=== PATIENT | female | born 1970 | race Caucasian/White ===

== ENCOUNTER → 2018-12-09 09:21 | Outpatient (CLI) | payer OTHER, SELFPAY ==
--- NOTE | 2018-12-09 | DI.ECHO.S_ITS ---
[facility]---------+ [facility] +---------+ : : [address] : : : : [id number] : : : : Phone: [phone]+ Echocardiogram Report + + :Name: ROBBI VARGAS Study Date: 12/09/2018 Height: 64 in : :[facility] Exam Location: IS Weight: 172 lb: : Gender: Female BSA: 1.8 m2 : :: 1970 Age: 48 yrs BP: 1/68 mmHg : :Reason For Study: MURMUR : : Performed By: Daniel Cruz : :Referring: NIKUNJ IQBAL : + + Interpretation Summary 1) Normal left ventricular size, thickness, wall motion, and systolic function (EF 60-65%). 2) Normal right ventricular size and function. 3) Aortic valve is mildly sclerotic. 4) Mild aortic regurgitation present. There is an eccentric jet of aortic insufficiency directed against the anterior mitral leaflet. 5) No prior Echo available for comparison. Procedure: A two-dimensional transthoracic echocardiogram with color flow and Doppler was performed. The study quality was technically adequate. There is no prior echocardiogram noted for this patient. The patient was in normal sinus rhythm during the exam. Left Ventricle: The left ventricle is normal in size. There is normal left ventricular wall thickness. The ejection fraction is estimated to be 60-65%. Left ventricular systolic function is normal. There are no focal wall motion abnormalities. Right Ventricle: The right ventricle is normal in size and function. Atria: The left atrium is moderately dilated. Right atrial size is normal. The interatrial septum is intact with no evidence for an atrial septal defect. Mitral Valve: The mitral valve is normal in structure and function. There is trace mitral regurgitation. Aortic Valve: The aortic valve is trileaflet. The aortic valve opens well. There is mild aortic valve sclerosis. There is no aortic valve stenosis. There is mild aortic regurgitation. There is an eccentric jet of aortic insufficiency directed against the anterior mitral leaflet. Tricuspid Valve: The tricuspid valve is normal in structure and function. There is trace tricuspid regurgitation. The right ventricular systolic pressure is estimated to be at least 22 mmHg based on an estimated right atrial pressure of 3 mm Hg. Pulmonic Valve: The pulmonic valve is normal in structure and function. There is trace pulmonic regurgitation. Great Vessels: The aortic root is normal size. The dimensions of the ascending aorta are normal. The pulmonary artery is normal size. The IVC is of normal diameter and collapses greater than 50% with a sniff. This suggests a low right atrial pressure of 3 mm Hg. Pericardium/ Pleura There is no pericardial effusion. There is no pleural effusion. MMode/2D Measurements & Calculations LVIDd: 4.8 cm LVOT diam: 1.9 cm LVIDs: 2.8 cm Ao root diam: 3.0 cm FS: 42.2 % Aortic Jxn: 2.6 cm EPSS: 0.47 cm asc Aorta Diam: 3.2 cm IVSd: 0.65 cm Ao Arch Diam (Prox Trans): 2.1 cm LVPWd: 0.76 cm LV segura. diameter/BSA (cm/m^2): 2.6 LV sys. diameter/BSA (cm/m^2): 1.5 LA dimension: 2.9 cm RA long axis: 5.4 cm LA A2 area: 26.4 cm2 RA area: 16.1 cm2 LA A4 area: 21.0 cm2 RA vol: 41.1 ml LA length (vol): 5.9 cm RA : 22.4 ml/m2 LA vol: 79.6 ml IVC diam: 2.1 cm LA vol index: 43.4 ml/m2 Doppler Measurements & Calculations Ao V2 max: 148.3 cm/sec LVOT Max Srinivasa: 121.8 cm/sec Ao V2 mean: 104.3 cm/sec LV V1 max P.9 mmHg Ao max P.8 mmHg LV V1 VTI: 27.7 cm Ao mean P.7 mmHg VICTOR MANUEL(I,D): 2.4 cm2 Ao V2 VTI: 32.4 cm VICTOR MANUEL(V,D): 2.3 cm2 sev ratio: 0.86 VICTOR MANUEL indexed to BSA (cm^2/m^2): 1.3 AI P1/2t: 1075 msec AI dec slope: 98.5 cm/sec2 MV E max srinivasa: 92.7 cm/sec TR max srinivasa: 220.3 cm/sec MV A max srinivasa: 42.2 cm/sec TR max P.4 mmHg MV E/A: 2.2 PA V2 max: 64.1 cm/sec Med Peak E' Srinivasa: 7.5 cm/sec PA V2 mean: 48.2 cm/sec E/E' med: 12.3 PA mean P.0 mmHg Lat Peak E' Srinivasa: 13.3 cm/sec PA pr(Accel): 6.6 mmHg E/E' lat: 7.0 PA Accel Time: 0.13 sec E/e' average: 9.6 MV dec time: 0.20 sec SV(LVOT): 76.3 ml Reading Physician:05:17 PM
== END ==
PROVIDERS: Family Provider Naturopath; PCP Naturopath; Visit Provider Internal Medicine Cardiovascular Disease
DX: I35.1 Nonrheumatic aortic (valve) insufficiency (principal); Z86.79 Personal history of other diseases of the circulatory system
CPT/HCPCS: 93306

== ENCOUNTER → 2020-12-27 14:08 | Outpatient (CLI) | payer OTHER, SELFPAY | PROVIDERS: Family Provider Naturopath; PCP Family Medicine; Referring Provider Obstetrics & Gynecology; Visit Provider Obstetrics & Gynecology | DX: R10.2 Pelvic and perineal pain (principal); D21.9 Benign neoplasm of connective and other soft tissue, unspecified; Z53.8 Procedure and treatment not carried out for other reasons ==

== ENCOUNTER → 2021-03-09 07:59 | Outpatient (CLI) | payer OTHER, SELFPAY ==
[2021-03-09 19:11] LABS: Add Manual Diff / Slide Review NO; Basophils Absolute Auto 0 /uL (0-100); Basophils Percent Auto 0.9 % (0-2); Eosinophils Absolute Auto 900 /uL (0-450); Eosinophils Percent Auto 17.6 % (2-4); Hematocrit 38.2 % (36-46); Hemoglobin 12.8 g/dL (12.0-16.0); Lymphocytes Absolute Auto 1500 /uL (1100-4500); Lymphocytes Percent Auto 29.4 % (25-40); Mean Corpuscular HGB Conc 33.6 % (30-36); Mean Corpuscular Hemoglobin 30.6 PG (26-34); Mean Corpuscular Volume 91.1 fL (80-100); Monocytes Absolute Auto 500 /uL (0-900); Monocytes Percent Auto 10.1 % (3-14); Neutrophils Absolute Auto 2100 /uL (1500-7000); Platelet Count 283 X10^3/uL (150-400); Red Blood Cell Count 4.19 X10^6/uL (4.0-5.2); Red Cell Distribution Width 13.4 % (11.6-14.8); White Blood Cell Count 5.1 X10^3/uL (4.5-11.0)
[2021-03-09 19:24] LABS: Alanine Aminotransferase 16 IU/L (<35); Albumin 3.8 g/dL (3.5-5.0); Albumin Globulin Ratio 1.3 (1.0-2.8); Alkaline Phosphatase 40 U/L (38-126); Aspartate Aminotransferase 21 IU/L (14-36); BUN Creatinine Ratio 19.4 (6-22); Bilirubin Total 0.5 mg/dL (0.2-1.3); Blood Urea Nitrogen 13 mg/dL (7-17); Calcium 9.3 mg/dL (8.4-10.2); Carbon Dioxide 33 mmol/L (22-32); Chloride 104 mmol/L (98-107); Cholesterol 234 mg/dL (140-199); Estimated Glomerular Filt Rate > 60.0 mL/min (>60); Glucose 91 mg/dL (70-100); HDL Cholesterol 68 mg/dL (40-60); HEMOLYSIS < 15 (0-50); LDL Cholesterol Calculated 153 mg/dL (<100); Sodium 138 mmol/L (137-145); Total Protein 6.8 g/dL (6.3-8.2); Triglycerides 63 mg/dL (35-150)
[2021-03-09 19:52] LABS: TSH w/ Reflex to FT4 3.13 uIU/mL (0.47-4.68)
== END ==
PROVIDERS: Family Provider Naturopath; PCP Family Medicine; Visit Provider Family Medicine
DX: I49.9 Cardiac arrhythmia, unspecified (principal); Z00.00 Encounter for general adult medical examination without abnormal findings
CPT/HCPCS: 80053; 80061; 84443; 85025

== ENCOUNTER 2021-04-22 15:31 | Emergency (ER) | payer OTHER, SELFPAY ==
[2021-04-22 15:36] VITALS: BP 129/63; PULSE 70; RESP 18; TEMP 37; O2SAT 100
--- NOTE | 2021-04-22 16:12 | DI.RAD.S_ITS ---
PROCEDURE: XR LUMBAR SPINE 2-3V INDICATIONS: lumbosacral pain w/radiculopathy TECHNIQUE: 3 views of the lumbar spine were acquired. COMPARISON: None. FINDINGS: Bones: 5 [id number] vertebrae are present. There is minimal levoconvex scoliotic curvature. No focal AP alignment abnormality is seen. No vertebral body compression fractures. No suspicious bony lesions. Focal moderate disc space narrowing is seen at L5-S1. The disc heights otherwise appear well-preserved. Lower lumbar spine facet arthropathy is seen. Soft tissues: Overlying bowel gas pattern is normal. No suspicious soft tissue calcifications. IMPRESSION: Focal L5-S1 degenerative change seen by plain film. If it would be helpful for clinical management decision making, please consider a dedicated, scheduled lumbar spine MRI for further evaluation (assuming that there is no contraindication). Dictated by: Joseph Lynne M.D. on 04/22/2021 at 15:54 Approved by: Joseph Lynne M.D. on 04/22/2021 at 15:55
--- NOTE | 2021-04-22 16:12 | ED.BACK ---
HPI - Back Pain/Injury <ROCIO Simpson - Last Filed: 04/22/21 17:11> General Chief Complaint: Back Pain/Injury Stated Complaint: back pain Time Seen by Provider: 04/22/21 15:42 Source: patient History of Present Illness HPI Narrative: 51-year-old female with past medical history including PTSD, restless leg, chronic low back pain for 30 years with radiculopathy down the anterior aspect of her legs who presents to the emergency department with complaint of low back pain exacerbation which started over a week ago but has been worse over the last 5 days. 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 Patient states that she has been taking ibuprofen at home for her pain, this has been helpful but has not relieved all of her pain. Patient denies any weakness in her lower extremities, incontinence, she does endorse numbness and tingling which has gone down her left leg once this morning. She denies any new trauma, twisting, no known trigger for this low back pain flare. She states last weekend she was hiking, this could have been possible trigger but her pain got worse later in the week. Related Data Home Medications Medication Instructions Recorded Confirmed aspirin 81 mg tablet,delayed 81 mg PO DAILY 03/21/21 04/05/21 release (Adult Aspirin Regimen) Previous Rx's Medication Instructions Recorded ketorolac 10 mg tablet 10 mg PO Q8H PRN #14 tab 04/22/21 lidocaine 5 % topical patch 1 patch TOPICAL DAILY PRN #15 ea 04/22/21 methocarbamol 500 mg tablet 500 mg PO TID PRN #20 tab 04/22/21 pantoprazole 20 mg tablet,delayed 20 mg PO DAILY #20 tab 04/22/21 release Allergies Allergy/AdvReac Type Severity Reaction Status Date / Time Penicillins Allergy Unknown skin:rash Unverified 04/05/21 12:23 Review of Systems <ROCIO Simpson - Last Filed: 04/22/21 17:11> Review of Systems Narrative: General: denies fever, chills, malaise, sweats, fatigue Head/Neck: denies headache, neck pain, dizziness Eyes: denies visual changes, eye pain Cardio: denies chest pain, palpitations, edema Respiratory: denies dyspnea, cough, orthopnea GI: denies abdominal pain, nausea, vomiting, or diarrhea : denies dysuria, hematuria, urinary retention, frequency or incontinence MSK: denies joint pain, muscle weakness, endorses low back pain on bilateral sides, with sciatica symptoms that went down her left leg earlier today. Skin: denies rash, itching, skin lesions or other Neuro: denies numbness, tingling Patient History <ROCIO Simpson - Last Filed: 04/22/21 17:11> Medical History Abnormal Pap smear of cervix Asthma Cardiac arrhythmia, unspecified Chronic back pain Eczema Fibroids (~2018) Genital warts Gonorrhea Headache Neck pain Personal history of diseases of skin and subcutaneous tissue Plantar warts Preventative health care PTSD (post-traumatic stress disorder) Restless leg syndrome Shoulder pain Substance abuse Surgical History Anesthesia History of section (~05/28/05) Family History Grandfather Stomach cancer Alcohol abuse Grandmother History of heart disease Grandfather Kidney disease Grandmother Pancreas cancer Social History Smoking Status: Former smoker Smoking Status: Former smoker Exam <ROCIO Simpson - Last Filed: 04/22/21 17:11> Narrative Exam Narrative: Independently reviewed vitals signs and nursing notes. General: Cooperative, comfortable, in no acute distress, well developed and well groomed Head/Neck: Normal visual inspection and supple, atraumatic, no JVD or lymphadenopathy. Normal facial exam Eyes: Pupils equal round and reactive, EOMI, conjunctiva normal, no scleral icterus or injections Nose: External nose normal, nares patent, no rhinorrhea, without purulent drainage Mouth/Throat: uvula midline, moist mucus membranes Cardio: Regular rate and rhythm, no peripheral edema, warm extremities Respiratory: Normal respiratory effort, able to speak in complete sentences without audible wheezing, stridor, or rales. No retractions. GI: Abdomen soft, nontender to palpation x4 quadrants, nondistended, no masses or exquisite tenderness with exam, no flank tenderness MSK: Moves all extremities, neurovascularly intact, no focal neuro deficit, strength equal bilateral lower extremities, ambulates with steady gait, warm extremities, no tenderness to palpation of her lumbar spine Skin: Normal capillary refill, no rash Neuro: Normal speech and cognition, normal gait, A&O x3, tone normal, moves all extremities Psych: Mental status is grossly normal, speech is clear, congruent mood, normal affect Initial Vital Signs Initial Vital Signs: Vital Signs Temperature 98.6 F 04/22/21 15:36 Pulse Rate 70 04/22/21 15:36 Respiratory Rate 18 04/22/21 15:36 Blood Pressure 129/63 04/22/21 15:36 Pulse Oximetry 100 04/22/21 15:36 <Alejandra Porter DO - Last Filed: 04/22/21 18:42> Initial Vital Signs Initial Vital Signs: Vital Signs Temperature 98.6 F 04/22/21 15:36 Pulse Rate 70 04/22/21 15:36 Respiratory Rate 18 04/22/21 15:36 Blood Pressure 129/63 04/22/21 15:36 Pulse Oximetry 100 04/22/21 15:36 Course <ROCIO Simpson - Last Filed: 04/22/21 17:11> Orders Ordered: ED Orders 04/22/21 16:12 XR lumbar spine 2-3V Stat Discontinued Medications Acetaminophen (Acetaminophen 325 Mg Tablet) 975 mg PO NOW ONE Stop: 04/22/21 16:12 Last Admin: 04/22/21 16:54 Dose: 975 mg Documented by: DUSTIN Ketorolac Tromethamine (Ketorolac 10 Mg Tablet) 10 mg PO NOW ONE Stop: 04/22/21 16:12 Last Admin: 04/22/21 16:54 Dose: 10 mg Documented by: DUSTIN Lidocaine (Lidocaine Patch 1 Each Adh..Patch) 1 each TOP NOW ONE Stop: 04/22/21 16:12 Last Admin: 04/22/21 16:53 Dose: 1 each Documented by: DUSTIN Methocarbamol (Methocarbamol 500 Mg Tablet) 500 mg PO NOW ONE Stop: 04/22/21 16:12 Last Admin: 04/22/21 16:57 Dose: Not Given Documented by: BTONER Vital Signs Vital signs: Vital Signs - 8 hr 04/22/21 15:36 04/22/21 17:11 Temperature 98.6 F Pulse Rate 70 55 L Respiratory Rate 18 16 Blood Pressure 129/63 120/59 L Pulse Oximetry 100 100 <Alejandra Porter DO - Last Filed: 04/22/21 18:42> Orders Ordered: ED Orders 04/22/21 16:12 XR lumbar spine 2-3V Stat Discontinued Medications Acetaminophen (Acetaminophen 325 Mg Tablet) 975 mg PO NOW ONE Stop: 04/22/21 16:12 Last Admin: 04/22/21 16:54 Dose: 975 mg Documented by: BTONER Ketorolac Tromethamine (Ketorolac 10 Mg Tablet) 10 mg PO NOW ONE Stop: 04/22/21 16:12 Last Admin: 04/22/21 16:54 Dose: 10 mg Documented by: BTONER Lidocaine (Lidocaine Patch 1 Each Adh..Patch) 1 each TOP NOW ONE Stop: 04/22/21 16:12 Last Admin: 04/22/21 16:53 Dose: 1 each Documented by: BTONER Methocarbamol (Methocarbamol 500 Mg Tablet) 500 mg PO NOW ONE Stop: 04/22/21 16:12 Last Admin: 04/22/21 16:57 Dose: Not Given Documented by: BTONER Vital Signs Vital signs: Vital Signs - 8 hr 04/22/21 15:36 04/22/21 17:11 Temperature 98.6 F Pulse Rate 70 55 L Respiratory Rate 18 16 Blood Pressure 129/63 120/59 L Pulse Oximetry 100 100 MDM - Back Pain/Injury <PAIGE SimpsonP - Last Filed: 04/22/21 17:11> Imaging Data lumbar xr: Radiologist's Impression: PROCEDURE:? XR LUMBAR SPINE 2-3V ? INDICATIONS:? lumbosacral pain w/radiculopathy ? TECHNIQUE:? 3 views of the lumbar spine were acquired.? ? COMPARISON:? None. ? FINDINGS:? ? Bones:? 5 [id number] vertebrae are present.? There is minimal levoconvex scoliotic curvature. No focal AP alignment abnormality is seen.? ? No vertebral body compression fractures.? No suspicious bony lesions.? ? Focal moderate disc space narrowing is seen at L5-S1. The disc heights otherwise appear well-preserved.? Lower lumbar spine facet arthropathy is seen.? ? Soft tissues:? Overlying bowel gas pattern is normal.? No suspicious soft tissue calcifications.? ? ? IMPRESSION:? Focal L5-S1 degenerative change seen by plain film. ? If it would be helpful for clinical management decision making, please consider a dedicated, scheduled lumbar spine MRI for further evaluation (assuming that there is no contraindication).? ? ? Dictated by: Joseph Lynne M.D. on 04/22/2021 at 15:54 ? ? Approved by: Joseph Lynne M.D. on 04/22/2021 at 15:55 ? MDM Narrative Medical decision making narrative: 51-year-old female with past medical history including chronic low back pain, no recent imaging, PTSD, restless leg, who presents to the emergency department with flare of her low back pain over the last 5 days with a likely trigger of hiking a few days prior to this. Patient denies any trauma, she did not lift anything heavy and have pain started afterwards, she has been taking ibuprofen at home but missed 3 days of work because the pain was significant. Patient does not have any weakness, she does have some radiculopathy down her left leg, she states this is a worse flare than usual. X-ray lumbar spine shows degenerative changes at L5-S1 without associated vertebral compression fracture, no acute fracture, without suspicious soft tissue calcifications and disc heights appear well preserved. Patient was given lidocaine patch, Toradol p.o., pantoprazole and Tylenol in the emergency department with mild relief of her symptoms. She was driving so she did not take methocarbamol. She was given a prescription for Robaxin, lidocaine patches, Toradol pills, and pantoprazole to take while she is taking Toradol. Patient understands to use heat, rest, stay hydrated, eat food with taking these medications. She will follow-up with Dr. Manrique for physical therapy and advanced imaging. Multiple etiologies of back pain considered including; Epidural abscess, cauda equina, mass occupying lesion, lumbar fracture, intra-abdominal pathology chronic neuropathic pain and other considered. Patient is out with any weakness in her lower extremities, she does have some radiculopathy but no toe drinking, or weakness, or difficulty ambulating. Patient is appropriate and amenable to discharge home. Vital signs are stable on repeat examination is unremarkable. Patient has been informed of results. Patient has been given strict return to ER precautions for any new or worsening symptoms. Patient understands to follow up closely with outpatient providers as instructed. Patient understands plan and agrees to discharge home. All questions and concerns answered at this time. Discharge Plan Departure Patient Disposition: Home Clinical Impression: Degenerative disc disease at L5-S1 level Chronic back pain Qualifiers: Back pain location: low back pain Back pain laterality: midline Sciatica presence: with sciatica Sciatica laterality: sciatica of left side Qualified Code(s): M54.42 - Lumbago with sciatica, left side Instructions: DI for Back Pain With Sciatica, DI for Back Spasm Activity Restrictions/Additional Instructions: *You have been diagnosed with chronic low back pain with moderate disc space narrowing in L5-S1 which we call degenerative changes, no compression fractures, and this is most likely a disc issue between L5 and S1. Please follow-up with your primary care provider for advanced imaging and physical therapy. Please use muscle relaxers as necessary for the next few days until you start feeling better. He can take them every 8 hours, please do not drive on that medication. You can use a lidocaine patch over the area that is most painful all day, this may help numb some of the pain. Please take pantoprazole while your taking Toradol for pain, because you have aspirin listed as a daily medication, this will help prevent and ulcer or bleeding in your stomach on those medications. Please use heat packs, try to rest for the next couple of days to allow the flare to come down. If you are still having a flare Friday, please call Dr. Manrique and discussed possible steroids for low back pain exacerbation. Please follow-up with him about the physical therapy though, that can be extremely helpful since you have had this problem for a long time. *What to do: *Please continue to take your regular medications as directed. [ x] New medication prescriptions sent to your pharmacy: [[facility] ] [ ] New medication written as a paper prescription [ ] No new medications given *Please follow up with your primary care provider in 2-3 days, call for an appointment. Let them know you were seen in the Emergency Department and that we ask that you be seen in follow up. We will electronically transmit a record of today's note if your PCP is in our system *If you do not have a primary care provider please contact the [facility] Resource line at [phone]. They will ask some questions about your medical history and help get you set up with a doctor in the community. *Return to Emergency Department if you should have any new, worsening or concerning symptoms, such as [fever greater than 101F, chills, worsening pain, persistent vomiting or other bothersome symptoms] Prescriptions: New methocarbamol 500 mg tablet 500 mg PO TID PRN (Reason: muscle spasm) Qty: 20 0RF ketorolac 10 mg tablet 10 mg PO Q8H PRN (Reason: pain) Qty: 14 0RF pantoprazole 20 mg tablet,delayed release (DR/EC) 20 mg PO DAILY Qty: 20 0RF lidocaine 5 % adhesive patch,medicated 1 patch topical DAILY PRN (Reason: low back pain) Qty: 15 0RF Rx Instructions: leave on most painful area for up to 12 hrs No Action aspirin [Adult Aspirin Regimen] 81 mg tablet,delayed release (DR/EC) 81 mg PO DAILY 0RF Referrals: Adeel Manrique DO [Primary Care Provider] - Stand Alone Forms: Work Release Note <Alejandra Porter DO - Last Filed: 04/22/21 18:42> Cosign ED Attending Hazelature Attestation: I was immediately available in the department for consultation. Documentation has been reviewed.
[2021-04-22] MEDS: LIDOCAINE PATCH 1 EACH ADH..PATCH TOP (16:53)
[2021-04-22] MEDS: ACETAMINOPHEN 325 MG TABLET 975 MG PO (16:54)
[2021-04-22] MEDS: KETOROLAC 10 MG TABLET PO (16:54)
[2021-04-22 17:11] VITALS: BP 120/59; PULSE 55; RESP 16; O2SAT 100
--- NOTE | 2021-04-22 17:15 | PC.NURSE ---
low back, near sacral area.
== END 2021-04-22 17:18 | disposition home or self-care (01) ==
PROVIDERS: Emergency Provider Nurse Practitioner Critical Care Medicine; Family Provider Naturopath; PCP Family Medicine
DX: M54.42 Lumbago with sciatica, left side (principal); M51.37 Other intervertebral disc degeneration, lumbosacral region
CPT/HCPCS: 72100; 99283

== ENCOUNTER → 2021-12-31 07:18 | Outpatient (CLI) | payer OTHER, SELFPAY ==
[2021-12-31 21:05] LABS: COVID19 - ORCAS (NP or Nasal) Negative (Negative)
== END ==
PROVIDERS: Family Provider Naturopath; PCP Family Medicine; Visit Provider Family Medicine
DX: Z01.812 Encounter for preprocedural laboratory examination (principal); Z20.822 Contact with and (suspected) exposure to COVID-19
CPT/HCPCS: U0003

== ENCOUNTER → 2022-11-07 10:28 | Outpatient (CLI) | payer OTHER, SELFPAY ==
[2022-11-07 21:09] LABS: Add Manual Diff / Slide Review NO; Basophils Absolute Auto 100 /uL (0-100); Basophils Percent Auto 1.3 % (0-2); Eosinophils Absolute Auto 400 /uL (0-450); Eosinophils Percent Auto 5.9 % (2-4); Hematocrit 40.3 % (36-46); Hemoglobin 13.5 g/dL (12.0-16.0); Lymphocytes Absolute Auto 1300 /uL (1100-4500); Lymphocytes Percent Auto 21.2 % (25-40); Mean Corpuscular HGB Conc 33.5 % (30-36); Mean Corpuscular Hemoglobin 30.7 PG (26-34); Mean Corpuscular Volume 91.4 fL (80-100); Monocytes Absolute Auto 600 /uL (0-900); Monocytes Percent Auto 10.3 % (3-14); Neutrophils Absolute Auto 3800 /uL (1500-7000); Neutrophils Percent Auto 61.3 % (50-75); Platelet Count 311 X10^3/uL (150-400); Red Blood Cell Count 4.41 X10^6/uL (4.0-5.2); Red Cell Distribution Width 13.5 % (11.6-14.8); White Blood Cell Count 6.3 X10^3/uL (4.5-11.0)
[2022-11-07 21:50] LABS: Alanine Aminotransferase 29 IU/L (<35); Albumin 4.1 g/dL (3.5-5.0); Albumin Globulin Ratio 1.3 (1.0-2.8); Alkaline Phosphatase 53 U/L (38-126); Aspartate Aminotransferase 35 IU/L (14-36); BUN Creatinine Ratio 28.3 (6-22); Bilirubin Total 0.6 mg/dL (0.2-1.3); Blood Urea Nitrogen 15 mg/dL (7-17); Calcium 8.8 mg/dL (8.4-10.2); Carbon Dioxide 27 mmol/L (22-32); Chloride 102 mmol/L (98-107); Cholesterol 211 mg/dL (140-199); Estimated Glomerular Filt Rate > 60 mL/min (>60); Globulin 3.2 g/dL (1.7-4.1); Glucose 92 mg/dL (70-100); HDL Cholesterol 71 mg/dL (40-60); HEMOLYSIS 18 (0-50); LDL Cholesterol Calculated 127 mg/dL (<100); Potassium 4.2 mmol/L (3.4-5.1); Sodium 137 mmol/L (137-145); Total Protein 7.3 g/dL (6.3-8.2); Triglycerides 67 mg/dL (35-150)
[2022-11-07 22:03] LABS: Follicle Stimulating Hormone 92.9 mIU/mL; Luteinizing Hormone 38.8 mIU/mL
[2022-11-08 06:11] LABS: Free T4, Direct Thyroxine 1.07 ng/dL (0.78-2.19)
[2022-11-08 06:25] LABS: Thyroid Stimulating Hormone 1.28 uIU/mL (0.47-4.68)
[2022-11-08 06:35] LABS: Hemoglobin A1C% w Est Avg Glu 5.5 % (4.0-6.0)
== END ==
PROVIDERS: Family Provider Naturopath; PCP Physician Assistant Medical; Visit Provider Physician Assistant
DX: F41.9 Anxiety disorder, unspecified (principal); R41.840 Attention and concentration deficit; R79.89 Other specified abnormal findings of blood chemistry
CPT/HCPCS: 80053; 80061; 82306; 83001; 83002; 83036; 84439; 84443; 85025

== ENCOUNTER → 2023-04-05 10:53 | Outpatient (CLI) | payer OTHER, SELFPAY ==
--- NOTE | 2023-04-05 12:05 | DI.MRI.S_ITS ---
PROCEDURE: MR HEAD/BRAIN WO CON INDICATIONS: ataxia, vertigo, weakness, nausea TECHNIQUE: Noncontrast axial T1 spin echo, axial T2 fast spin echo, sagittal and axial FLAIR, coronal T2 fast spin echo, axial gradient echo, axial diffusion and ADC through the brain. COMPARISON: None. FINDINGS: Image quality: Excellent. CSF Spaces: Basal cisterns are patent. No extra-axial fluid collections. Ventricles are normal in size and shape. Brain: No intracranial masses or hemorrhage. Jackson/white matter interface is normal. Brainstem appears normal. Diffusion-weighted images demonstrate no acute infarct. No chronic ischemic insults. Normal intravascular flow voids are present. Skull and face: Calvarium has normal marrow signal. Orbits appear normal. Incidental right frontal subcutaneous cyst 1.2 cm, likely sebaceous cyst Sinuses: Sinuses and mastoids are clear. IMPRESSION: Unremarkable MRI of the brain Incidental right frontal scalp sebaceous cyst Approved by: Gareth Valderrama M.D. on 04/07/2023 at 11:29
== END ==
PROVIDERS: Family Provider Naturopath; PCP Physician Assistant Medical; Referring Provider Physician Assistant Medical; Visit Provider Physician Assistant Medical
DX: F43.0 Acute stress reaction (principal); R27.0 Ataxia, unspecified; L72.3 Sebaceous cyst
CPT/HCPCS: 70551

== ENCOUNTER → 2023-08-28 11:28 | Outpatient (CLI) | payer OTHER, SELFPAY ==
[2023-08-28 19:57] LABS: Add Manual Diff / Slide Review NO; Basophils Absolute Auto 100 /uL (0-100); Basophils Percent Auto 1.1 % (0-2); Eosinophils Absolute Auto 300 /uL (0-450); Eosinophils Percent Auto 6.1 % (2-4); Hematocrit 39.2 % (36-46); Hemoglobin 13.1 g/dL (12.0-16.0); Lymphocytes Absolute Auto 1500 /uL (1100-4500); Lymphocytes Percent Auto 31.6 % (25-40); Mean Corpuscular HGB Conc 33.6 % (30-36); Mean Corpuscular Hemoglobin 30.5 PG (26-34); Mean Corpuscular Volume 90.8 fL (80-100); Monocytes Absolute Auto 700 /uL (0-900); Monocytes Percent Auto 14.2 % (3-14); Neutrophils Absolute Auto 2200 /uL (1500-7000); Platelet Count 292 X10^3/uL (150-400); Red Blood Cell Count 4.31 X10^6/uL (4.0-5.2); Red Cell Distribution Width 13.8 % (11.6-14.8); White Blood Cell Count 4.7 X10^3/uL (4.5-11.0)
[2023-08-28 20:01] LABS: Alanine Aminotransferase 438 IU/L (<35); Albumin Globulin Ratio 1.2 (1.0-2.8); Alkaline Phosphatase 79 U/L (38-126); Aspartate Aminotransferase 273 IU/L (14-36); BUN Creatinine Ratio 13.3 (6-22); Bilirubin Total 0.8 mg/dL (0.2-1.3); Blood Urea Nitrogen 8 mg/dL (7-17); C-Reactive Protein Quant < 0.5 mg/dL (<1.0); Calcium 9.3 mg/dL (8.4-10.2); Carbon Dioxide 28 mmol/L (22-32); Chloride 105 mmol/L (98-107); Estimated Glomerular Filt Rate > 60 mL/min (>60); Globulin 3.3 g/dL (1.7-4.1); Glucose 94 mg/dL (70-100); HEMOLYSIS < 15 (0-50); Potassium 4.1 mmol/L (3.4-5.1); Sodium 138 mmol/L (137-145); Total Protein 7.3 g/dL (6.3-8.2)
[2023-08-28 20:08] LABS: Rheumatoid Factor < 8.6 IU/mL (<12.0)
[2023-08-28 20:16] LABS: Erythrocyte Sedimentation Rate 9 MM/HR (0-20)
[2023-08-28 20:30] LABS: TSH w/ Reflex to FT4 1.03 uIU/mL (0.47-4.68)
== END ==
PROVIDERS: Family Provider Naturopath; PCP Physician Assistant Medical; Visit Provider Physician Assistant Medical
DX: R53.83 Other fatigue (principal); F32.9 Major depressive disorder, single episode, unspecified; I49.9 Cardiac arrhythmia, unspecified
CPT/HCPCS: 80053; 84443; 85025; 85651; 86140; 86430

== ENCOUNTER → 2023-10-31 08:36 | Outpatient (CLI) | payer OTHER, SELFPAY ==
[2023-10-31 18:47] LABS: Alanine Aminotransferase 67 IU/L (<35); Albumin 4.3 g/dL (3.5-5.0); Albumin Globulin Ratio 1.4 (1.0-2.8); Alkaline Phosphatase 74 U/L (38-126); Aspartate Aminotransferase 65 IU/L (14-36); BUN Creatinine Ratio 20.9 (6-22); Bilirubin Total 0.7 mg/dL (0.2-1.3); Blood Urea Nitrogen 14 mg/dL (7-17); Calcium 9.8 mg/dL (8.4-10.2); Carbon Dioxide 25 mmol/L (22-32); Chloride 104 mmol/L (98-107); Estimated Glomerular Filt Rate > 60 mL/min (>60); Gamma Glutamyl Transpeptidase 118 U/L (12-43); Globulin 3.1 g/dL (1.7-4.1); Glucose 93 mg/dL (70-100); HEMOLYSIS 30 (0-50); Potassium 4.7 mmol/L (3.4-5.1); Sodium 138 mmol/L (137-145); Total Protein 7.4 g/dL (6.3-8.2)
== END ==
PROVIDERS: Family Provider Naturopath; PCP Physician Assistant Medical; Referring Provider Physician Assistant Medical; Visit Provider Physician Assistant Medical
DX: R79.89 Other specified abnormal findings of blood chemistry (principal)
CPT/HCPCS: 80053; 82977